=== PATIENT | male | born 1965 | race Caucasian/White ===

== ENCOUNTER 2021-09-29 03:50 | Observation (INO) ==
[2021-09-29] MEDS ORDERED: Lactated Ringers 1000 ml BAG 1,000 ML IV ONE (04:19)
[2021-09-29] MEDS ORDERED: Droperidol 5 MG/2 ML 2 ML VIAL IV ONE (04:19)
[2021-09-29 04:56] LABS: ABS Eosinophils 0.1 10^3/ul (0-0.6); ABS Lymphocytes 0.7 10^3/ul (1.0-4.8); ABS Monocytes 1.3 10^3/ul (0-0.8); ABS Neutrophils 8.7 10^3/ul (1.5-7.7); Eosinophil % 0.8 %; Hematocrit 44 % (42-52); Hemoglobin 15.3 g/dL (14.0-18.0); Lymphocyte % 6.5 %; Mean Corpuscular HGB Conc 35 g/dL (31-36); Mean Corpuscular Hemoglobin 31 pg (27-31); Mean Corpuscular Volume 89 fL (80-94); Mean Platelet Volume 8.5 fL (7.4-10.4); Platelet Count 258 10^3/uL (150-450); Red Blood Count 4.95 10^6 /uL (4.18-5.48); Red Cell Distribution Width 13 % (10-15); White Blood Count 10.8 10^3/uL (3.5-10.8)
[2021-09-29 05:11] LABS: Albumin 3.8 g/dL (3.2-5.2); Albumin/Globulin Ratio 1.4 (1-3); Calcium 9.1 mg/dL (8.6-10.3); Globulin 2.7 g/dL (2-4); Potassium 3.6 mmol/L (3.5-5.0); Total Bilirubin 0.8 mg/dL (0.2-1.0); Total Protein 6.5 g/dL (6.4-8.9); eGFR CKD-EPI 98.9 (>60)
[2021-09-29] MEDS ORDERED: Iohexol 300 (CONTRAST) 10 ML SDV IV ONE (06:24)
[2021-09-29] MEDS ORDERED: Piperacillin/Tazobac ADVAN 3.375 GM in NS 0.9% 100 ml BAG 100 ML IV ONE (07:33)
[2021-09-29] MEDS ORDERED: NS 0.9% 1000 ml BAG 1,000 ML IV ONE (07:33)
[2021-09-29 10:00] LABS: Urine Appearance Clear; Urine Bilirubin Negative (Negative); Urine Blood 1+ (Negative); Urine Color Yellow; Urine Glucose Negative (Negative); Urine Ketones Negative (Negative); Urine Nitrite Negative (Negative); Urine Protein Negative (Negative); Urine Specific Gravity 1.034 (1.002-1.030); Urine Urobilinogen Negative (Negative)
[2021-09-29 10:17] LABS: Urine Bacteria Absent (Absent); Urine Red Blood Cell 1+(3-5/hpf) (Absent); Urine White Blood Cell Trace(0-5/hpf) (Absent)
[2021-09-29] MEDS ORDERED: Ondansetron 4 mg VIAL 2 MG/ML 2 ml VIAL IV PRN (10:21)
[2021-09-29] MEDS ORDERED: Acetaminophen IV 1 GM/100ML 100 ML IV PRN (10:24)
[2021-09-29 10:50] LABS: C Reactive Protein 112.63 mg/L (<8.01)
[2021-09-29] MEDS ORDERED: D5W 1/2 NS KCl 20 meq 1000 ml 1,000 ML IV SCH (12:00)
[2021-09-29] MEDS ORDERED: Piperacillin/Tazobac ADVAN 3.375 GM in NS 0.9% 100 ml BAG 100 ML IV SCH (12:00)
[2021-09-29] MEDS ORDERED: Bupivacaine 0.25% SDV 30 ML ONE (12:29)
[2021-09-29] MEDS ORDERED: Ondansetron 4 mg VIAL 2 MG/ML 2 ml VIAL ONE (12:39)
[2021-09-29] MEDS ORDERED: Propofol 10 MG/ML 20 ML BTL ONE (12:39)
[2021-09-29] MEDS ORDERED: Lidocaine 2% PF 5 ML VIAL ONE (12:39)
[2021-09-29] MEDS ORDERED: Dexamethasone IV 4 MG/ML VIAL 1 ml VIAL ONE ×2 (12:39→13:41)
[2021-09-29] MEDS ORDERED: Rocuronium 50 mg VIAL 10 mg/ml 5 ml VIAL (50 mg) ONE ×2 (12:39→14:16)
[2021-09-29] MEDS ORDERED: fentaNYL 100 mcg/2 ml 50 MCG/ML VIAL ONE (12:40)
[2021-09-29] MEDS ORDERED: Midazolam 2 mg/2 ml VIAL 1 mg/ml 2 ml VIAL (2 mg) ONE (12:40)
[2021-09-29] MEDS ORDERED: Buffered Lidocaine 1% SYRIN 1 ml INTRADERM ONE (12:47)
[2021-09-29] MEDS ORDERED: fentaNYL 100 mcg/2 ml 50 MCG/ML VIAL IV PRN (12:48)
[2021-09-29] MEDS ORDERED: DiMENhydriNATE IV 50 mg/ml 1 ml VIAL IV PUSH PRN (12:48)
[2021-09-29] MEDS ORDERED: Naloxone 0.4 mg VIAL 0.4 mg/ml 1 ml VIAL IV PRN (12:48)
[2021-09-29] MEDS ORDERED: Lactated Ringers 1000 ml BAG 1,000 ML IV SCH (13:00)
[2021-09-29] MEDS ORDERED: Phenylephrine 40 mcg/mL 10mL (400mcg) SYRINGE ONE (13:27)
[2021-09-29] MEDS ORDERED: HYDROmorphone 0.5 MG/0.5 ML SYRINGE ONE (14:05)
[2021-09-29] MEDS ORDERED: Acetaminophen IV 1 GM/100ML 100 ML IV ONE (15:35)
[2021-09-29] MEDS: Heparin 5000 UNITS/ML 1 mL VIAL SUBCUT SCH ×2 (16:10→21:18)
[2021-09-29] MEDS: Piperacillin/Tazobac ADVAN 3.375 GM in NS 0.9% 100 ml BAG 100 ML IV SCH ×2 (16:10→21:18)
[2021-09-29] MEDS ORDERED: EPHEDrine (Pressors) 50 MG/ML VIAL ONE (16:12)
[2021-09-29] MEDS: NS 0.9% 1,000 ML IV SCH (17:51)
[2021-09-30] MEDS: NS 0.9% 1,000 ML IV SCH (03:07)
[2021-09-30] MEDS: Heparin 5000 UNITS/ML 1 mL VIAL SUBCUT SCH ×2 (05:17→14:07)
[2021-09-30] MEDS: Piperacillin/Tazobac ADVAN 3.375 GM in NS 0.9% 100 ml BAG 100 ML IV SCH ×2 (05:17→14:07)
[2021-09-30 05:18] LABS: Hematocrit 36 % (42-52); Hemoglobin 12.3 g/dL (14.0-18.0); Mean Corpuscular HGB Conc 34 g/dL (31-36); Mean Corpuscular Hemoglobin 31 pg (27-31); Mean Corpuscular Volume 90 fL (80-94); Mean Platelet Volume 8.6 fL (7.4-10.4); Platelet Count 231 10^3/uL (150-450); Red Cell Distribution Width 13 % (10-15); White Blood Count 7.7 10^3/uL (3.5-10.8)
[2021-09-30 05:35] LABS: Calcium 8.1 mg/dL (8.6-10.3); Potassium 3.7 mmol/L (3.5-5.0); eGFR CKD-EPI 107.7 (>60)
[2021-09-30] MEDS ORDERED: Flu vaccine *QUAD* 2021-22* 0.5 ML SYRINGE IM ONE (09:00)
[2021-09-30 11:19] VITALS: BP 138/85
== END 2021-09-30 14:20 | disposition home or self-care (01) ==
LOC: ED 03:50 → INTOOBSV 12:32 → AA 12:32 → SSU 17:28
PROVIDERS: ADMIT Nurse Practitioner; ATTEND Surgery Surgical Critical Care